=== PATIENT | female | born 1975 | race Caucasian/White ===

== ENCOUNTER 2017-03-22 08:32 | Emergency (ER) | payer SELFPAY ==
[~2017-03-22] VITALS: Ht 175.3 cm; Wt 74.0 kg
[~2017-03-22 08:32] MED LIST: ADDERALL20 MG PO; CIPROFLOXACN500 MG PO
[2017-03-22 09:17] LABS: HEMATOCRIT 42.7 % (37.0-47.0); HEMOGLOBIN 13.7 g/dl (12.0-16.0); IMMATURE GRANULOCYTES 0.2 % (0.0-1.0); MEAN CELL VOLUME 84.2 fL CALC (80.0-100.0); MEAN CORPUSCULAR HGB CONC 32.1 g/L CALC (32.0-36.0); NEUT# 7.55 thou/uL (2.00-7.15); RED BLOOD COUNT 5.07 mill/uL (4.20-5.60); RED CELL DISTRI WIDTH 14.6 % (11.5-15.5)
[2017-03-22 09:24] LABS: ALKALINE PHOSPHATASE 57 u/l (38-126); ANION GAP 15 (6-22 (CALC)); BILIRUBIN, TOTAL 0.5 mg/dL (0.0-1.4); BUN 12 mg/dL (7-17); BUN/CREATININE RATIO 18 (12-20 (CALC)); CALCIUM 9.3 mg/dL (8.4-10.2); CARBON DIOXIDE 20 mmol/l (22-30); CHLORIDE 110 mmol/l (95-108); CREATININE 0.7 mg/dL (0.5-1.0); GFR > 60 ML/MIN (>=60 (CALC)); GFR FOR AFR.AMER. > 60 ML/MIN (>=60 (CALC)); GLUCOSE 89 mg/dL (65-105); POTASSIUM 4.1 mmol/l (3.5-5.1); SGOT/AST 18 u/l (14-36); SGPT/ALT 34 u/l (9-52); SODIUM 141 mmol/l (137-146); TOTAL PROTEIN 6.7 g/dL (6.3-8.2)
[2017-03-22 09:41] LABS: URINE BILIRUBIN - DIPSTICK NEGATIVE (NEGATIVE); URINE BLOOD DIPSTICK SMALL (NEGATIVE); URINE COLOR YELLOW; URINE GLUCOSE - DIPSTICK NEGATIVE (NEGATIVE); URINE KETONE NEGATIVE (NEGATIVE); URINE LEUK ESTERASE TRACE (NEGATIVE); URINE NITRITE - DIPSTICK NEGATIVE (Negative); URINE PH 6.5 (4.5-8.0); URINE PROTEIN - DIPSTICK NEGATIVE (NEG-TRACE); URINE UROBILINOGEN - DIPSTICK 0.2 E.U./dL (0.2)
[2017-03-22 09:43] LABS: URINE CLARITY SLIGHT CLOUDY; URINE EPITHELIAL CELLS FEW EPI/hpf (0-FEW); URINE WBC 0-2 WBC/hpf (0-5)
[2017-03-22 09:44] LABS: BARBITURATES NEGATIVE (NEGATIVE); COCAINE NEGATIVE (NEGATIVE); METHADONE NEGATIVE (NEGATIVE); OXCYCODONE NEGATIVE (NEGATIVE); TETRAHYDROCANNABIONOL NEGATIVE (NEGATIVE); TRICYLIC ANTIDEPRESSANTS NEGATIVE (NEGATIVE)
[2017-03-22 09:49] VITALS: BP 125/67
== END 2017-03-22 09:57 | disposition home or self-care (01) | DRG 948 ==
LOC: ED 08:32
PROVIDERS: Family Medicine
DX: R53.83 Other fatigue (principal); F17.210 Nicotine dependence, cigarettes, uncomplicated; F90.0 Attention-deficit hyperactivity disorder, predominantly inattentive type; M54.16 Radiculopathy, lumbar region

== ENCOUNTER 2017-04-28 06:42 | Emergency (ER) | payer OTHER ==
[~2017-04-28] VITALS: Ht 172.7 cm; Wt 86.2 kg
[2017-04-28] MEDS ORDERED: PREDNISONE20 MG PO (07:30)
[2017-04-28] MEDS ORDERED: TIZANIDINE2 MG PO (07:31)
[2017-04-28 07:32] LABS: HEMATOCRIT 42.9 % (37.0-47.0); HEMOGLOBIN 13.6 g/dl (12.0-16.0); IMMATURE GRANULOCYTES 0.4 % (0.0-1.0); MEAN CELL VOLUME 85.1 fL CALC (80.0-100.0); MEAN CORPUSCULAR HGB CONC 31.7 g/L CALC (32.0-36.0); NEUT# 7.47 thou/uL (2.00-7.15); RED BLOOD COUNT 5.04 mill/uL (4.20-5.60); RED CELL DISTRI WIDTH 14.1 % (11.5-15.5)
[2017-04-28 07:33] LABS: URINE BILIRUBIN - DIPSTICK NEGATIVE (NEGATIVE); URINE BLOOD DIPSTICK NEGATIVE (NEGATIVE); URINE CLARITY CLEAR; URINE COLOR YELLOW; URINE GLUCOSE - DIPSTICK NEGATIVE (NEGATIVE); URINE KETONE NEGATIVE (NEGATIVE); URINE LEUK ESTERASE NEGATIVE (NEGATIVE); URINE NITRITE - DIPSTICK NEGATIVE (Negative); URINE PROTEIN - DIPSTICK NEGATIVE (NEG-TRACE); URINE SPECIFIC GRAVITY 1.025; URINE UROBILINOGEN - DIPSTICK 0.2 E.U./dL (0.2)
[2017-04-28 07:44] LABS: ALBUMIN 3.9 g/dL (3.2-5.0); ALKALINE PHOSPHATASE 58 u/l (38-126); BILIRUBIN, TOTAL 0.4 mg/dL (0.0-1.4); BUN 12 mg/dL (7-17); BUN/CREATININE RATIO 17 (12-20 (CALC)); CALCIUM 9.4 mg/dL (8.4-10.2); CARBON DIOXIDE 23 mmol/l (22-30); CHLORIDE 108 mmol/l (95-108); CREATININE 0.7 mg/dL (0.5-1.0); GFR > 60 ML/MIN (>=60 (CALC)); GFR FOR AFR.AMER. > 60 ML/MIN (>=60 (CALC)); GLUCOSE 84 mg/dL (65-105); SGOT/AST 15 u/l (14-36); SGPT/ALT 30 u/l (9-52); SODIUM 143 mmol/l (137-146); TOTAL PROTEIN 6.4 g/dL (6.3-8.2)
[2017-04-28 07:46] LABS: ANION GAP 16 (6-22 (CALC)); POTASSIUM 4.2 mmol/l (3.5-5.1)
[2017-04-28] MEDS ORDERED: MOTRIN800 MG PO (08:40)
[2017-04-28 08:45] VITALS: BP 131/74
== END 2017-04-28 08:49 | disposition home or self-care (01) | DRG 761 ==
LOC: ED 06:42
PROVIDERS: Emergency Medicine
DX: N83.201 Unspecified ovarian cyst, right side (principal); F17.210 Nicotine dependence, cigarettes, uncomplicated; M54.16 Radiculopathy, lumbar region; F90.0 Attention-deficit hyperactivity disorder, predominantly inattentive type

== ENCOUNTER 2017-08-18 06:11 | Day surgery (SDC) | payer OTHER ==
[~2017-08-18] VITALS: Ht 172.7 cm; Wt 81.6 kg
[~2017-08-18 06:11] MED LIST changes: +MOTRIN800 MG PO; +PREDNISONE20 MG PO; +TIZANIDINE2 MG PO
[2017-08-18] MEDS ORDERED: ASPIRIN81 MG PO (06:28)
[2017-08-18 07:53] VITALS: BP 113/60
== END 2017-08-18 08:22 | disposition home or self-care (01) | DRG 552 ==
LOC: ORM 06:11
PROVIDERS: ATTEND Anesthesiology Pain Medicine
PROC: 3E0T3BZ Introduction of Anesthetic Agent into Peripheral Nerves and Plexi, Percutaneous Approach (ICD-10-PCS; principal; 2017-08-18)
PROC: 3E0T33Z Introduction of Anti-inflammatory into Peripheral Nerves and Plexi, Percutaneous Approach (ICD-10-PCS; 2017-08-18)
PROC: BR16ZZZ Fluoroscopy of Lumbar Facet Joint(s) (ICD-10-PCS; 2017-08-18)
PROC: 3E0T3BZ Introduction of Anesthetic Agent into Peripheral Nerves and Plexi, Percutaneous Approach (ICD-10-PCS; 2017-08-18)
PROC: 3E0T33Z Introduction of Anti-inflammatory into Peripheral Nerves and Plexi, Percutaneous Approach (ICD-10-PCS; 2017-08-18)
DX: M54.5 Low back pain (principal); M12.9 Arthropathy, unspecified

== ENCOUNTER 2017-09-01 06:49 | Day surgery (SDC) | payer OTHER ==
[~2017-09-01] VITALS: Ht 172.7 cm; Wt 81.6 kg
[~2017-09-01 06:49] MED LIST changes: +ASPIRIN81 MG PO
[2017-09-01] MEDS ORDERED: TYLENOL 500MG TAB PO (07:14)
[2017-09-01] MEDS ORDERED: CEPHALEXIN500 MG PO (07:14)
[2017-09-01] MEDS ORDERED: BACLOFEN20 MG PO ×2 (09:05)
[2017-09-01 12:31] VITALS: BP 115/61
== END 2017-09-01 09:07 | disposition home or self-care (01) | DRG 552 ==
LOC: ORM 06:49
PROVIDERS: ATTEND Anesthesiology Pain Medicine
PROC: 3E0T3BZ Introduction of Anesthetic Agent into Peripheral Nerves and Plexi, Percutaneous Approach (ICD-10-PCS; principal; 2017-09-01)
PROC: 3E0T33Z Introduction of Anti-inflammatory into Peripheral Nerves and Plexi, Percutaneous Approach (ICD-10-PCS; 2017-09-01)
DX: M54.5 Low back pain (principal); M12.9 Arthropathy, unspecified

== ENCOUNTER 2021-10-01 12:22 | Emergency (ER) | payer BC ==
[~2021-10-01] VITALS: Ht 172.7 cm; Wt 88.1 kg
[~2021-10-01 12:22] MED LIST changes: +BACLOFEN20 MG PO; +CEPHALEXIN500 MG PO; +TYLENOL 500MG TAB PO
[2021-10-01 13:20] VITALS: BP 138/68
[2021-10-01] MEDS ORDERED: STRATTERA60 MG PO (13:36)
[2021-10-01 13:48] LABS: HEMATOCRIT 42.1 % (37.0-47.0); HEMOGLOBIN 13.1 g/dl (12.0-16.0); IMMATURE GRANULOCYTES 0.1 % (0.0-5.0); MEAN CELL VOLUME 85.4 fL CALC (80.0-100.0); MEAN CORPUSCULAR HGB 26.6 pG CALC (26.0-32.0); MEAN CORPUSCULAR HGB CONC 31.1 g/dL CAL (32.0-36.0); NEUT# 5.09 thou/uL (2.00-7.15); RED BLOOD COUNT 4.93 mill/uL (4.20-5.60); RED CELL DISTRI WIDTH 16.6 % (11.5-15.5)
[2021-10-01 14:05] LABS: ANION GAP 10 (6-22 (CALC)); BUN 8 mg/dL (7-17); BUN/CREATININE RATIO 10 (12-20 (CALC)); CARBON DIOXIDE 25 mmol/l (22-30); CHLORIDE 107 mmol/l (95-108); CREATININE 0.8 mg/dL (0.5-1.0); GFR > 60 ML/MIN (>=60 (CALC)); GFR FOR AFR.AMER. > 60 ML/MIN (>=60 (CALC)); POTASSIUM 3.7 mmol/l (3.5-5.1); SODIUM 138 mmol/l (137-146)
[2021-10-01 14:16] VITALS: BP 126/66
[2021-10-01 14:31] VITALS: BP 151/81
[2021-10-01 14:46] VITALS: BP 114/62
== END 2021-10-01 15:48 | disposition home or self-care (01) | DRG 556 ==
LOC: ED 12:22
PROVIDERS: Family Medicine
DX: M25.562 Pain in left knee (principal); M25.462 Effusion, left knee

== ENCOUNTER 2022-10-20 21:48 | Emergency (ER) | payer BC ==
[~2022-10-20] VITALS: Ht 172.7 cm; Wt 98.0 kg
[~2022-10-20 21:48] MED LIST changes: +STRATTERA60 MG PO
[2022-10-20 21:59] VITALS: BP 116/66
[2022-10-20] MEDS ORDERED: CEPHALEXIN500 MG PO (22:14)
[2022-10-20] MEDS ORDERED: TIZANIDINE4 MG PO (22:14)
[2022-10-20] MEDS ORDERED: FERROUS SULF325 M3 PO (22:15)
[2022-10-20] MEDS ORDERED: MEDDOSEPAK PO (22:15)
[2022-10-20] MEDS ORDERED: MELOXICAM7.5 MG PO (22:15)
[2022-10-20 22:16] VITALS: BP 109/59
[2022-10-20] MEDS ORDERED: ATIVAN0.5 MG PO (22:17)
[2022-10-20 22:31] VITALS: BP 114/52
[2022-10-20 22:42] VITALS: BP 114/52
== END 2022-10-20 22:35 | disposition left against medical advice (07) | DRG 951 ==
LOC: ED 21:48 → LWOBS 22:35
DX: Z53.21 Procedure and treatment not carried out due to patient leaving prior to being seen by health care provider (principal)

== ENCOUNTER 2022-10-22 07:20 | Emergency (ER) | payer OTHER ==
[~2022-10-22] VITALS: Ht 172.7 cm; Wt 90.0 kg
[~2022-10-22 07:20] MED LIST changes: +ATIVAN0.5 MG PO; +FERROUS SULF325 M3 PO; +MEDDOSEPAK PO; +MELOXICAM7.5 MG PO; +TIZANIDINE4 MG PO
[2022-10-22 07:30] VITALS: BP 149/77
[2022-10-22 07:46] VITALS: BP 125/82
[2022-10-22 08:01] VITALS: BP 133/67
[2022-10-22 08:51] VITALS: BP 133/67
== END 2022-10-22 08:45 | disposition home or self-care (01) | DRG 554 ==
LOC: ED 07:20
DX: M17.12 Unilateral primary osteoarthritis, left knee (principal)

== ENCOUNTER 2023-08-11 07:04 | Emergency (ER) | payer OTHER ==
[~2023-08-11] VITALS: Ht 172.7 cm; Wt 90.7 kg
[~2023-08-11 07:04] MED LIST changes: +AMOX/K CLAV875 M1 PO; +AMOXICILLIN500 M2 PO; +DOXY-CAPS100 MG PO; +FLONASE AL50 MCG/ACT; +IPRATROPIU0.5 MG/3 M IN; +LOPRESSOR25 M1 PO; +NAPROXEN500 MG PO; +NEBULIZER KIT/TUBING PO; +NEBULIZER PO; +PREDNISONE50 MG PO; +VENTOLIN HFA108 MCG PO
[2023-08-11 07:08] VITALS: BP 147/73
[2023-08-11 07:16] VITALS: BP 122/73
[2023-08-11] MEDS ORDERED: DICLOFENAC75 MG PO (07:58)
[2023-08-11 08:16] VITALS: BP 122/73
== END 2023-08-11 08:19 | disposition home or self-care (01) | DRG 554 ==
LOC: ED 07:04
DX: M17.12 Unilateral primary osteoarthritis, left knee (principal); I10 Essential (primary) hypertension; F41.9 Anxiety disorder, unspecified

== ENCOUNTER 2023-08-25 06:56 | Emergency (ER) | payer OTHER ==
[2023-08-25] VITALS (16 sets, daily range): BP systolic 109–170; BP diastolic 44–129
[~2023-08-25] VITALS: Ht 172.7 cm; Wt 91.0 kg
[~2023-08-25 06:56] MED LIST changes: +DICLOFENAC75 MG PO
[2023-08-25 07:30] LABS: BASO% 0.3 % (0-3); EOS% 1.7 % (0-8); HEMATOCRIT 44.1 % (37.0-47.0); HEMOGLOBIN 13.6 g/dl (12.0-16.0); IMMATURE GRANULOCYTES 0.2 % (0.0-5.0); LYMPH% 18.8 % (15-41); MEAN CELL VOLUME 86.6 fL CALC (80.0-100.0); MEAN CORPUSCULAR HGB 26.7 pG CALC (26.0-32.0); MEAN CORPUSCULAR HGB CONC 30.8 g/dL CAL (32.0-36.0); MONO% 6.7 % (2-13); NEUT# 7.48 thou/uL (2.00-7.15); NEUT% 72.3 % (42-76); RED BLOOD COUNT 5.09 mill/uL (4.20-5.60)
[2023-08-25 07:46] LABS: ALKALINE PHOSPHATASE 86 u/l (38-126); ANION GAP 11 (6-22 (CALC)); BILIRUBIN, TOTAL 0.2 mg/dL (0.02-1.3); BUN 12 mg/dL (7-17); BUN/CREATININE RATIO 17 (12-20 (CALC)); CARBON DIOXIDE 21 mmol/l (22-30); CHLORIDE 107 mmol/l (95-108); CREATININE 0.7 mg/dL (0.5-1.0); GFR FOR AFR.AMER. > 60 ML/MIN (>=60 (CALC)); GFR OTHER RACES > 60 ML/MIN (>=60 (CALC)); POTASSIUM 3.7 mmol/l (3.5-5.1); SGOT/AST 32 u/l (14-36); SODIUM 136 mmol/l (137-146); TOTAL PROTEIN 6.8 g/dL (6.3-8.2)
[2023-08-25 08:27] LABS: URINE BILIRUBIN - DIPSTICK Negative (NEGATIVE); URINE BLOOD DIPSTICK Negative (NEGATIVE); URINE COLOR Yellow; URINE GLUCOSE - DIPSTICK Negative (NEGATIVE); URINE KETONE Negative (NEGATIVE); URINE LEUK ESTERASE Negative (NEGATIVE); URINE NITRITE - DIPSTICK Negative (Negative); URINE PROTEIN - DIPSTICK Negative (NEG-TRACE); URINE UROBILINOGEN - DIPSTICK 0.2 E.U./dL (0.2)
== END 2023-08-25 11:10 | disposition home or self-care (01) | DRG 313 ==
LOC: ED 06:56
PROVIDERS: Family Medicine
DX: R07.9 Chest pain, unspecified (principal); I10 Essential (primary) hypertension; F41.9 Anxiety disorder, unspecified; K21.9 Gastro-esophageal reflux disease without esophagitis; F17.200 Nicotine dependence, unspecified, uncomplicated

== ENCOUNTER 2024-01-31 14:34 | Emergency (ER) | payer OTHER ==
[~2024-01-31] VITALS: Ht 172.7 cm; Wt 88.4 kg
[~2024-01-31 14:34] MED LIST changes: +CARAFATE1 GM PO; +GABAPENTIN300 M2; +LOREEV XR2 MG PO
[2024-01-31 14:45] VITALS: BP 157/72
[2024-01-31 15:01] VITALS: BP 144/75
[2024-01-31 15:16] VITALS: BP 125/74
[2024-01-31 15:30] VITALS: BP 129/86
[2024-01-31 15:46] VITALS: BP 129/86
== END 2024-01-31 15:50 | disposition home or self-care (01) | DRG 153 ==
LOC: ED 14:34
DX: J06.9 Acute upper respiratory infection, unspecified (principal); I10 Essential (primary) hypertension; F41.9 Anxiety disorder, unspecified; K21.9 Gastro-esophageal reflux disease without esophagitis; F17.200 Nicotine dependence, unspecified, uncomplicated; Z20.822 Contact with and (suspected) exposure to COVID-19

== ENCOUNTER → 2024-02-05 | Emergency (ER) | payer OTHER ==
[~2024-02-05] VITALS: Ht 172.7 cm; Wt 75.9 kg
[~2024-02-05] MED LIST changes: +ANUCORT-HC25 MG RE
[2024-02-05 17:37] VITALS: BP 151/76
[2024-02-05 17:46] VITALS: BP 127/71
[2024-02-05 18:01] VITALS: BP 119/80
== END | disposition home or self-care (01) | DRG 379 ==
LOC: ED 17:29
DX: K62.5 Hemorrhage of anus and rectum (principal); I10 Essential (primary) hypertension; F41.9 Anxiety disorder, unspecified; K21.9 Gastro-esophageal reflux disease without esophagitis; F17.200 Nicotine dependence, unspecified, uncomplicated; Z53.29 Procedure and treatment not carried out because of patient's decision for other reasons

== ENCOUNTER 2024-02-16 08:50 | Emergency (ER) | payer OTHER ==
[~2024-02-16] VITALS: Ht 172.7 cm; Wt 86.3 kg
[2024-02-16 09:10] VITALS: BP 150/90
[2024-02-16 09:29] LABS: BASO% 0.5 % (0-3); EOS% 3.5 % (0-8); HEMATOCRIT 40.7 % (37.0-47.0); HEMOGLOBIN 12.6 g/dl (12.0-16.0); IMMATURE GRANULOCYTES 0.4 % (0.0-5.0); LYMPH% 19.8 % (15-41); MEAN CELL VOLUME 80.9 fL CALC (80.0-100.0); MONO% 8.2 % (2-13); NEUT# 7.5 thou/uL (2.00-7.15); NEUT% 67.6 % (42-76); RED BLOOD COUNT 5.03 mill/uL (4.20-5.60); RED CELL DISTRI WIDTH 15.3 % (11.5-15.5)
[2024-02-16 09:31] VITALS: BP 116/66
[2024-02-16 09:38] LABS: ALBUMIN 4.3 g/dL (3.2-5.0); ALKALINE PHOSPHATASE 101 u/l (38-126); ANION GAP 10 (6-22 (CALC)); BILIRUBIN, TOTAL 0.3 mg/dL (0.02-1.3); BUN 13 mg/dL (7-17); BUN/CREATININE RATIO 18 (12-20 (CALC)); CARBON DIOXIDE 21 mmol/l (22-30); CHLORIDE 109 mmol/l (95-108); CREATININE 0.7 mg/dL (0.5-1.0); ESTIMATED GFR 106 ML/MIN (>=90 (CALC)); LIPASE 113 u/l (23-300); POTASSIUM 3.9 mmol/l (3.5-5.1); SGOT/AST 32 u/l (14-36); SODIUM 136 mmol/l (137-146); TOTAL PROTEIN 7.3 g/dL (6.3-8.2)
[2024-02-16 10:00] VITALS: BP 139/73
[2024-02-16 10:47] VITALS: BP 115/54
[2024-02-16] MEDS ORDERED: ZOFRAN4 MG/TAB PO (10:59)
[2024-02-16 11:00] VITALS: BP 131/62
[2024-02-16 11:11] VITALS: BP 131/62
[2024-02-16] MEDS ORDERED: PREDNISONE20 MG PO (21:06)
== END 2024-02-16 11:13 | disposition home or self-care (01) | DRG 392 ==
LOC: ED 08:50
PROVIDERS: Family Medicine
DX: R10.84 Generalized abdominal pain (principal); I10 Essential (primary) hypertension; F41.9 Anxiety disorder, unspecified; K21.9 Gastro-esophageal reflux disease without esophagitis; F17.210 Nicotine dependence, cigarettes, uncomplicated

== ENCOUNTER 2024-02-16 20:08 | Emergency (ER) | payer OTHER ==
[~2024-02-16] VITALS: Ht 172.7 cm; Wt 86.0 kg
[~2024-02-16 20:08] MED LIST changes: +ZOFRAN4 MG/TAB PO
[2024-02-16] MEDS ORDERED: predniSONE 20 MG/TAB PO ONE (20:45)
[2024-02-16] MEDS ORDERED: DiphenhydrAMINE HCL 25 MG CPLT PO ONE (20:45)
[2024-02-16] MEDS ORDERED: PREDNISONE20 MG PO (21:06)
[2024-02-16 21:20] VITALS: BP 122/78
== END 2024-02-16 21:20 | disposition home or self-care (01) | DRG 880 ==
LOC: ED 20:08
DX: F41.0 Panic disorder [episodic paroxysmal anxiety] (principal); I10 Essential (primary) hypertension; J45.909 Unspecified asthma, uncomplicated; K21.9 Gastro-esophageal reflux disease without esophagitis; F17.210 Nicotine dependence, cigarettes, uncomplicated; Z88.8 Allergy status to other drugs, medicaments and biological substances

== ENCOUNTER 2024-03-19 11:05 | Emergency (ER) | payer OTHER ==
[~2024-03-19] VITALS: Ht 172.7 cm; Wt 90.7 kg
[2024-03-19 11:11] VITALS: BP 149/68
[2024-03-19 11:16] VITALS: BP 139/76
[2024-03-19] MEDS ORDERED: DiphenhydrAMINE HCL 50 MG/ML SDV IV ONE (11:25)
[2024-03-19] MEDS ORDERED: methylPREDNISolone SODIUM SUCC 125 MG/2 ML SDV IV ONE (11:25)
[2024-03-19] MEDS ORDERED: FAMOTIDINE 10MG/ML 2ML SDV IV ONE (11:25)
[2024-03-19] MEDS ORDERED: IPRATROPIUM-Albuterol 0.5MG-2.5MG/3 ML NEB ONE ×2 (11:30)
[2024-03-19] MEDS ORDERED: ASPIRIN 81 MG/TAB PO ONE (11:30)
[2024-03-19 12:04] LABS: BASO% 0.2 % (0-3); EOS% 2.8 % (0-8); HEMATOCRIT 39.5 % (37.0-47.0); HEMOGLOBIN 12.1 g/dl (12.0-16.0); IMMATURE GRANULOCYTES 0.4 % (0.0-5.0); LYMPH% 20.7 % (15-41); MEAN CELL VOLUME 77.6 fL CALC (80.0-100.0); MEAN CORPUSCULAR HGB 23.8 pG CALC (26.0-32.0); MEAN CORPUSCULAR HGB CONC 30.6 g/dL CAL (32.0-36.0); MONO% 6.3 % (2-13); NEUT# 8.55 thou/uL (2.00-7.15); NEUT% 69.6 % (42-76); RED BLOOD COUNT 5.09 mill/uL (4.20-5.60); RED CELL DISTRI WIDTH 15.9 % (11.5-15.5)
[2024-03-19 12:19] LABS: ALBUMIN 4.2 g/dL (3.2-5.0); BILIRUBIN, TOTAL 0.3 mg/dL (0.02-1.3); CREATININE 0.7 mg/dL (0.5-1.0); POTASSIUM 4.1 mmol/l (3.5-5.1); TOTAL PROTEIN 7.1 g/dL (6.3-8.2)
[2024-03-19] MEDS ORDERED: EPINEPHrine HCL 1 MG/ML AMP IM ONE (12:50)
[2024-03-19] MEDS ORDERED: ALL DAY10 MG PO (13:32)
[2024-03-19 13:40] VITALS: BP 139/76
== END 2024-03-19 13:49 | disposition home or self-care (01) | DRG 916 ==
LOC: ED 11:05
PROVIDERS: Family Medicine
DX: T78.40XA Allergy, unspecified, initial encounter (principal); I10 Essential (primary) hypertension; E66.9 Obesity, unspecified; F41.9 Anxiety disorder, unspecified; K21.9 Gastro-esophageal reflux disease without esophagitis; F17.200 Nicotine dependence, unspecified, uncomplicated; X58.XXXA Exposure to other specified factors, initial encounter

== ENCOUNTER 2024-03-28 12:09 | Emergency (ER) | payer OTHER ==
[~2024-03-28] VITALS: Ht 172.7 cm; Wt 86.0 kg
[2024-03-28] VITALS (9 sets, daily range): BP systolic 84–209; BP diastolic 57–113
[~2024-03-28 12:09] MED LIST changes: +ALL DAY10 MG PO
[2024-03-28] MEDS ORDERED: MEDDOSEPAK PO (13:31)
[2024-03-28] MEDS ORDERED: LEVOCETIRIZINE D5 MG PO (13:31)
[2024-03-28] MEDS ORDERED: ALLERGY RE50 MCG/ACT (13:31)
[2024-03-28] MEDS ORDERED: BENZONATATE200 MG PO (13:31)
== END 2024-03-28 14:11 | disposition home or self-care (01) | DRG 153 ==
LOC: ED 12:09
DX: J06.9 Acute upper respiratory infection, unspecified (principal); I10 Essential (primary) hypertension; F41.9 Anxiety disorder, unspecified; K21.9 Gastro-esophageal reflux disease without esophagitis; F17.200 Nicotine dependence, unspecified, uncomplicated; Z20.822 Contact with and (suspected) exposure to COVID-19

== ENCOUNTER 2024-04-09 12:54 | Emergency (ER) | payer OTHER ==
[~2024-04-09] VITALS: Ht 172.7 cm; Wt 86.2 kg
[~2024-04-09 12:54] MED LIST changes: +ALLERGY RE50 MCG/ACT; +BENZONATATE200 MG PO; +LEVOCETIRIZINE D5 MG PO
[2024-04-09 13:15] VITALS: BP 132/56
[2024-04-09 13:31] VITALS: BP 136/62
[2024-04-09 13:57] VITALS: BP 132/56
== END 2024-04-09 14:05 | disposition home or self-care (01) | DRG 204 ==
LOC: ED 12:54
DX: R05.9 Cough, unspecified (principal); I10 Essential (primary) hypertension; F41.9 Anxiety disorder, unspecified; K21.9 Gastro-esophageal reflux disease without esophagitis; F17.200 Nicotine dependence, unspecified, uncomplicated

== ENCOUNTER 2024-04-16 15:12 | Emergency (ER) | payer OTHER ==
[~2024-04-16] VITALS: Ht 172.7 cm; Wt 89.8 kg
[2024-04-16 15:23] VITALS: BP 128/73
[2024-04-16 15:30] VITALS: BP 151/79
[2024-04-16] MEDS ORDERED: DiphenhydrAMINE HCL 25 MG CPLT PO ONE (15:35)
[2024-04-16] MEDS ORDERED: predniSONE 20 MG/TAB PO ONE (15:35)
[2024-04-16] MEDS ORDERED: PREDNISONE50 MG PO (15:36)
[2024-04-16] MEDS ORDERED: PAXIL30 MG PO (15:36)
[2024-04-16] MEDS ORDERED: BENADRYL25 M1 PO (15:36)
[2024-04-16] MEDS ORDERED: predniSONE 20 MG/TAB PO SCH (16:08)
[2024-04-16 16:17] VITALS: BP 151/79
== END 2024-04-16 16:17 | disposition home or self-care (01) | DRG 880 ==
LOC: ED 15:12
DX: F41.9 Anxiety disorder, unspecified (principal); I10 Essential (primary) hypertension; K21.9 Gastro-esophageal reflux disease without esophagitis; F17.200 Nicotine dependence, unspecified, uncomplicated

== ENCOUNTER 2024-06-08 20:30 | Emergency (ER) | payer OTHER ==
[~2024-06-08] VITALS: Ht 172.7 cm; Wt 86.0 kg
[~2024-06-08 20:30] MED LIST changes: +BENADRYL25 M1 PO; +IBUPROFEN600 MG PO; +PAXIL30 MG PO; +VISTARIL 50MG C50 M1 PO
[2024-06-08] MEDS ORDERED: ASPIRIN 81 MG/TAB PO ONE (20:50)
[2024-06-08] MEDS ORDERED: KETOROLAC TROMETHAMINE 30 MG/ML SDV IV ONE (20:50)
[2024-06-08] MEDS ORDERED: DiphenhydrAMINE HCL 50 MG/ML SDV IV ONE (20:50)
[2024-06-08 21:19] VITALS: BP 110/56
[2024-06-08 21:38] LABS: ALBUMIN 4.2 g/dL (3.2-5.0); ALKALINE PHOSPHATASE 94 u/l (38-126); ANION GAP 14 (6-22 (CALC)); BUN 15 mg/dL (7-17); BUN/CREATININE RATIO 19 (12-20 (CALC)); CARBON DIOXIDE 23 mmol/l (22-30); CHLORIDE 105 mmol/l (95-108); CREATININE 0.8 mg/dL (0.5-1.0); ESTIMATED GFR 90 ML/MIN (>=90 (CALC)); POTASSIUM 4.3 mmol/l (3.5-5.1); SGOT/AST 32 u/l (14-36); SODIUM 138 mmol/l (137-146)
[2024-06-08 21:43] LABS: BASO% 0.4 % (0-3); EOS% 3.3 % (0-8); HEMATOCRIT 36.3 % (37.0-47.0); HEMOGLOBIN 10.6 g/dl (12.0-16.0); IMMATURE GRANULOCYTES 0.6 % (0.0-5.0); LYMPH% 19.2 % (15-41); MEAN CORPUSCULAR HGB CONC 29.2 g/dL CAL (32.0-36.0); MONO% 6.1 % (2-13); NEUT# 7.92 thou/uL (2.00-7.15); NEUT% 70.4 % (42-76); RED BLOOD COUNT 5.04 mill/uL (4.20-5.60); RED CELL DISTRI WIDTH 18.9 % (11.5-15.5)
[2024-06-08 21:45] LABS: INTERNATIONAL NORMALIZED RATIO 0.9 RATIO (0.7-1.3)
[2024-06-08 21:51] LABS: BILIRUBIN, TOTAL 0.3 mg/dL (0.02-1.3)
[2024-06-08 21:54] LABS: PROTHROMBIN TIME 9.3 SECONDS (9.0-12.5)
[2024-06-08] MEDS ORDERED: TORADOL PO (22:09)
[2024-06-08] MEDS ORDERED: LEXAPRO10 MG PO (22:09)
[2024-06-08 22:24] VITALS: BP 110/56
== END 2024-06-08 22:24 | disposition home or self-care (01) | DRG 313 ==
LOC: ED 20:30
PROVIDERS: Family Medicine
DX: R07.89 Other chest pain (principal); F41.9 Anxiety disorder, unspecified; I10 Essential (primary) hypertension; K21.9 Gastro-esophageal reflux disease without esophagitis; R73.03 Prediabetes; F17.200 Nicotine dependence, unspecified, uncomplicated

== ENCOUNTER 2024-06-14 20:41 | Emergency (ER) | payer OTHER ==
[~2024-06-14] VITALS: Ht 172.7 cm; Wt 86.0 kg
[~2024-06-14 20:41] MED LIST changes: +LEXAPRO10 MG PO; +TORADOL PO
[2024-06-14 22:27] VITALS: BP 150/73
[2024-06-15] MEDS ORDERED: ATIVAN1 MG PO (08:25)
[2024-06-15] MEDS ORDERED: TOPROL XL25 M1 PO (08:25)
[2024-06-15] MEDS ORDERED: LIPITOR40 M1 PO (09:15)
== END 2024-06-14 22:25 | disposition left against medical advice (07) | DRG 951 ==
LOC: ED 20:41 → LWOBS 22:25
DX: Z53.21 Procedure and treatment not carried out due to patient leaving prior to being seen by health care provider (principal)

== ENCOUNTER 2024-06-15 07:54 | Emergency (ER) | payer OTHER ==
[~2024-06-15] VITALS: Ht 172.7 cm; Wt 95.2 kg
[2024-06-15] MEDS ORDERED: Iopamidol 370 (Isovue) 76% 100 ML SDV IV ONE ×2 (08:00)
[2024-06-15] MEDS ORDERED: ATIVAN1 MG PO (08:25)
[2024-06-15] MEDS ORDERED: TOPROL XL25 M1 PO (08:25)
[2024-06-15 08:27] LABS: BASO% 0.4 % (0-3); EOS% 3.4 % (0-8); HEMATOCRIT 36.9 % (37.0-47.0); HEMOGLOBIN 10.6 g/dl (12.0-16.0); IMMATURE GRANULOCYTES 0.2 % (0.0-5.0); LYMPH% 21.8 % (15-41); MEAN CORPUSCULAR HGB 20.4 pG CALC (26.0-32.0); MEAN CORPUSCULAR HGB CONC 28.7 g/dL CAL (32.0-36.0); MONO% 8.3 % (2-13); NEUT# 6.66 thou/uL (2.00-7.15); NEUT% 65.9 % (42-76); RED BLOOD COUNT 5.2 mill/uL (4.20-5.60); RED CELL DISTRI WIDTH 18.8 % (11.5-15.5)
[2024-06-15 08:31] VITALS: BP 128/56
[2024-06-15] MEDS ORDERED: CLOPIDOGREL BISULFATE 75 MG/TAB TAB PO ONE (08:35)
[2024-06-15] MEDS ORDERED: ASPIRIN 81 MG/TAB PO ONE (08:35)
[2024-06-15 08:38] LABS: INTERNATIONAL NORMALIZED RATIO 0.9 RATIO (0.7-1.3)
[2024-06-15 08:39] VITALS: BP 126/59
[2024-06-15 08:40] LABS: ALBUMIN 4.1 g/dL (3.2-5.0); ALKALINE PHOSPHATASE 95 u/l (38-126); ANION GAP 14 (6-22 (CALC)); BILIRUBIN, TOTAL 0.4 mg/dL (0.02-1.3); BUN 12 mg/dL (7-17); BUN/CREATININE RATIO 17 (12-20 (CALC)); CALCULATED LDLCHOLESTEROL 92 mg/dL (62-129 (CALC)); CARBON DIOXIDE 22 mmol/l (22-30); CHLORIDE 105 mmol/l (95-108); CREATININE 0.7 mg/dL (0.5-1.0); ESTIMATED GFR 105 ML/MIN (>=90 (CALC)); HDL CHOLESTEROL 59 mg/dL (39.0-59.0); POTASSIUM 4.1 mmol/l (3.5-5.1); SGOT/AST 27 u/l (14-36); SODIUM 137 mmol/l (137-146); TOTAL CHOLESTEROL 174 mg/dl (0-199); TOTAL PROTEIN 6.9 g/dL (6.3-8.2); TOTAL TRIGLYCERIDES 117 mg/dl (0-149); VLDL CHOLESTROL 23 mg/dl (2-49 (CALC))
[2024-06-15 08:41] LABS: PROTHROMBIN TIME 9.8 SECONDS (9.0-12.5)
[2024-06-15 08:52] VITALS: BP 148/71
[2024-06-15] MEDS ORDERED: LIPITOR40 M1 PO (09:15)
[2024-06-15 09:27] LABS: URINE BILIRUBIN - DIPSTICK Negative (NEGATIVE); URINE BLOOD DIPSTICK Small (NEGATIVE); URINE GLUCOSE - DIPSTICK Negative (NEGATIVE); URINE KETONE Negative (NEGATIVE); URINE LEUK ESTERASE Negative (NEGATIVE); URINE NITRITE - DIPSTICK Negative (Negative); URINE PH 5.5 (4.5-8.0); URINE PROTEIN - DIPSTICK Negative (NEG-TRACE); URINE SPECIFIC GRAVITY 1.025; URINE UROBILINOGEN - DIPSTICK 0.2 E.U./dL (0.2)
[2024-06-15 09:31] LABS: URINE COLOR Yellow; URINE EPITHELIAL CELLS FEW EPI/hpf (0-FEW)
[2024-06-15 09:34] VITALS: BP 148/71
[2024-06-16] MEDS ORDERED: LASIX20 MG PO (13:06)
[2024-06-16] MEDS ORDERED: PLAVIX75 MG PO (13:07)
[2024-06-16] MEDS ORDERED: ATORVASTATIN CA40 MG PO (13:08)
== END 2024-06-15 09:37 | disposition left against medical advice (07) | DRG 93 ==
LOC: ED 07:54
PROVIDERS: Family Medicine
DX: R47.81 Slurred speech (principal); R20.2 Paresthesia of skin; R42 Dizziness and giddiness; J02.9 Acute pharyngitis, unspecified; I10 Essential (primary) hypertension; E11.9 Type 2 diabetes mellitus without complications; F41.9 Anxiety disorder, unspecified; K21.9 Gastro-esophageal reflux disease without esophagitis; R73.03 Prediabetes; F17.200 Nicotine dependence, unspecified, uncomplicated; Z53.21 Procedure and treatment not carried out due to patient leaving prior to being seen by health care provider

== ENCOUNTER 2024-06-15 11:21 | Observation (INO) | payer OTHER ==
[2024-06-15] VITALS (9 sets, daily range): BP systolic 116–147; BP diastolic 57–76
[~2024-06-15] VITALS: Ht 172.7 cm; Wt 107.2 kg
[~2024-06-15 11:21] MED LIST changes: +ATIVAN1 MG PO; +LIPITOR40 M1 PO; +TOPROL XL25 M1 PO
[2024-06-15] MEDS ORDERED: MAGNESIUM HYDROXIDE 30 ML UDC PO PRN (12:20)
[2024-06-15] MEDS ORDERED: ACETAMINOPHEN 325 MG/TAB PO PRN (12:20)
[2024-06-15] MEDS ORDERED: SODIUM CHLORIDE 0.9% 1,000 ML IV PRN (12:20)
[2024-06-15] MEDS ORDERED: DEXTROSE 250 ML IV PRN ×2 (12:30→14:20)
[2024-06-15] MEDS ORDERED: hydrALAZINE HCL 20 MG/ML VIAL(1 ML) IV PRN (12:50)
[2024-06-15] MEDS ORDERED: LORazepam 1 MG/TAB PO PRN (14:20)
[2024-06-15] MEDS ORDERED: INSULIN LISPRO 100 UNITS/ML ML SC SCH (17:00)
[2024-06-15] MEDS ORDERED: ENOXAPARIN SODIUM 40 MG/0.4 ML SYR SC SCH (21:00)
[2024-06-15] MEDS ORDERED: ATORVASTATIN CALCIUM 40 MG/TAB PO SCH (21:00)
[2024-06-16 04:10] VITALS: BP 121/69
[2024-06-16 05:15] LABS: BASO% 0.6 % (0-3); EOS% 2.2 % (0-8); HEMATOCRIT 33.8 % (37.0-47.0); HEMOGLOBIN 9.7 g/dl (12.0-16.0); IMMATURE GRANULOCYTES 0.4 % (0.0-5.0); LYMPH% 25.2 % (15-41); MEAN CELL VOLUME 72.1 fL CALC (80.0-100.0); MEAN CORPUSCULAR HGB 20.7 pG CALC (26.0-32.0); MEAN CORPUSCULAR HGB CONC 28.7 g/dL CAL (32.0-36.0); MONO% 8.5 % (2-13); NEUT# 5.62 thou/uL (2.00-7.15); NEUT% 63.1 % (42-76); RED BLOOD COUNT 4.69 mill/uL (4.20-5.60); RED CELL DISTRI WIDTH 18.9 % (11.5-15.5)
[2024-06-16 05:25] LABS: ALBUMIN 3.3 g/dL (3.2-5.0); BILIRUBIN, TOTAL 0.3 mg/dL (0.02-1.3); CHOLESTEROL HDL RATIO 3.1 (<4.4 (CALC)); CREATININE 0.7 mg/dL (0.5-1.0); MAGNESIUM 2.1 mg/dL (1.6-2.3); POTASSIUM 3.8 mmol/l (3.5-5.1); TOTAL PROTEIN 5.7 g/dL (6.3-8.2)
[2024-06-16 07:05] VITALS: BP 128/70
[2024-06-16] MEDS ORDERED: ASPIRIN 81 MG/TAB PO SCH (09:00)
[2024-06-16] MEDS ORDERED: CLOPIDOGREL BISULFATE 75 MG/TAB TAB PO SCH (09:00)
[2024-06-16] MEDS ORDERED: IRON SUCROSE COMPLEX 200 MG in SODIUM CHLORIDE 0.9% 100 ML IV SCH (09:00)
[2024-06-16 10:29] VITALS: BP 144/77
[2024-06-16 10:58] VITALS: BP 144/77
[2024-06-16] MEDS ORDERED: DiphenhydrAMINE HCL 50 MG/ML SDV IV SCH (11:00)
[2024-06-16] MEDS ORDERED: methylPREDNISolone SODIUM SUCC 125 MG/2 ML SDV IV SCH (11:00)
[2024-06-16] MEDS ORDERED: FAMOTIDINE 10MG/ML 2ML SDV IV SCH (11:00)
[2024-06-16] MEDS ORDERED: LASIX20 MG PO (13:06)
[2024-06-16] MEDS ORDERED: PLAVIX75 MG PO (13:07)
[2024-06-16] MEDS ORDERED: ATORVASTATIN CA40 MG PO (13:08)
== END 2024-06-16 14:40 | disposition home or self-care (01) | DRG 93 ==
LOC: ED 11:21 → ED-I 11:32 → ED 11:39 → MS2 11:40
PROVIDERS: ADMIT Student in an Organized Health Care Education/Training Program; ATTEND Student in an Organized Health Care Education/Training Program
DX: R20.0 Anesthesia of skin (principal); R53.1 Weakness; R47.81 Slurred speech; I10 Essential (primary) hypertension; E11.65 Type 2 diabetes mellitus with hyperglycemia; D50.0 Iron deficiency anemia secondary to blood loss (chronic); N92.0 Excessive and frequent menstruation with regular cycle; F41.9 Anxiety disorder, unspecified; K21.9 Gastro-esophageal reflux disease without esophagitis; F40.240 Claustrophobia; E66.9 Obesity, unspecified; R06.02 Shortness of breath; T45.4X5A Adverse effect of iron and its compounds, initial encounter; F17.290 Nicotine dependence, other tobacco product, uncomplicated
CPT/HCPCS: G0378; J1650; J1756; J1815

== ENCOUNTER 2024-06-20 16:21 | Observation (INO) | payer OTHER ==
[2024-06-20] VITALS (14 sets, daily range): BP systolic 109–132; BP diastolic 37–68
[~2024-06-20] VITALS: Ht 172.7 cm; Wt 105.8 kg
[~2024-06-20 16:21] MED LIST changes: +ATORVASTATIN CA40 MG PO; +LASIX20 MG PO; +PLAVIX75 MG PO
[2024-06-20] MEDS ORDERED: NITROGLYCERIN 0.4 MG/TAB SL ONE (16:40)
[2024-06-20] MEDS ORDERED: ASPIRIN 81 MG/TAB PO ONE (16:40)
[2024-06-20 17:04] LABS: BASO% 0.4 % (0-3); EOS% 3.4 % (0-8); HEMATOCRIT 37.4 % (37.0-47.0); HEMOGLOBIN 10.8 g/dl (12.0-16.0); IMMATURE GRANULOCYTES 0.5 % (0.0-5.0); LYMPH% 18.6 % (15-41); MEAN CELL VOLUME 72.3 fL CALC (80.0-100.0); MEAN CORPUSCULAR HGB 20.9 pG CALC (26.0-32.0); MEAN CORPUSCULAR HGB CONC 28.9 g/dL CAL (32.0-36.0); MONO% 8.9 % (2-13); NEUT# 7.39 thou/uL (2.00-7.15); NEUT% 68.2 % (42-76); RED BLOOD COUNT 5.17 mill/uL (4.20-5.60); RED CELL DISTRI WIDTH 20.7 % (11.5-15.5)
[2024-06-20 17:14] LABS: ALBUMIN 4.4 g/dL (3.2-5.0); BILIRUBIN, TOTAL 0.3 mg/dL (0.02-1.3); CREATININE 0.9 mg/dL (0.5-1.0); POTASSIUM 4.1 mmol/l (3.5-5.1)
[2024-06-20] MEDS ORDERED: NITROGLYCERIN 0.4 MG/TAB SL PRN (20:30)
[2024-06-20] MEDS ORDERED: ACETAMINOPHEN 325 MG/TAB PO PRN (20:35)
[2024-06-20] MEDS ORDERED: MAGNESIUM HYDROXIDE 30 ML UDC PO PRN (20:35)
[2024-06-20] MEDS ORDERED: LORazepam 0.5 MG/TAB PO PRN (22:25)
[2024-06-21 03:13] VITALS: BP 112/45
[2024-06-21 05:20] LABS: BILIRUBIN, TOTAL 0.2 mg/dL (0.02-1.3); CREATININE 0.6 mg/dL (0.5-1.0); POTASSIUM 4.5 mmol/l (3.5-5.1)
[2024-06-21 05:22] LABS: BASO% 0.5 % (0-3); EOS% 4.6 % (0-8); HEMATOCRIT 36.2 % (37.0-47.0); HEMOGLOBIN 10.9 g/dl (12.0-16.0); IMMATURE GRANULOCYTES 0.4 % (0.0-5.0); LYMPH% 20.8 % (15-41); MEAN CELL VOLUME 72.5 fL CALC (80.0-100.0); MEAN CORPUSCULAR HGB 21.8 pG CALC (26.0-32.0); MEAN CORPUSCULAR HGB CONC 30.1 g/dL CAL (32.0-36.0); NEUT# 4.94 thou/uL (2.00-7.15); NEUT% 63.7 % (42-76); RED BLOOD COUNT 4.99 mill/uL (4.20-5.60); RED CELL DISTRI WIDTH 20.4 % (11.5-15.5)
[2024-06-21 05:42] LABS: ALBUMIN 3.5 g/dL (3.2-5.0)
[2024-06-21 07:18] VITALS: BP 113/47
[2024-06-21] MEDS ORDERED: ASPIRIN 81 MG/TAB PO SCH (09:00)
[2024-06-21 09:20] VITALS: BP 122/65
[2024-06-21 11:02] VITALS: BP 124/63
[2024-06-21] MEDS ORDERED: CORLANOR5 MG PO (14:24)
[2024-06-21] MEDS ORDERED: VAZALORE81 MG PO (14:25)
[2024-06-21] MEDS ORDERED: ATORVASTATIN CA40 MG PO (14:26)
[2024-06-21] MEDS ORDERED: NITROSTAT0.4 MG SL (14:28)
[2024-06-21] MEDS ORDERED: ATORVASTATIN CALCIUM 40 MG/TAB PO SCH (21:00)
== END 2024-06-21 15:40 | disposition home or self-care (01) | DRG 313 ==
LOC: ED 16:21 → ED-I 20:00 → ED 21:02 → MS2 21:03
PROVIDERS: Family Medicine; ADMIT Internal Medicine; ATTEND Internal Medicine
DX: R07.9 Chest pain, unspecified (principal); I47.11 Inappropriate sinus tachycardia, so stated; I10 Essential (primary) hypertension; J44.9 Chronic obstructive pulmonary disease, unspecified; E11.9 Type 2 diabetes mellitus without complications; D50.9 Iron deficiency anemia, unspecified; N92.0 Excessive and frequent menstruation with regular cycle; F41.9 Anxiety disorder, unspecified; K21.9 Gastro-esophageal reflux disease without esophagitis; F32.A Depression, unspecified; F40.240 Claustrophobia; Z86.73 Personal history of transient ischemic attack (TIA), and cerebral infarction without residual deficits; Z87.891 Personal history of nicotine dependence; R06.02 Shortness of breath
CPT/HCPCS: G0378

== ENCOUNTER 2024-06-23 13:13 | Emergency (ER) | payer OTHER ==
[~2024-06-23] VITALS: Ht 172.7 cm; Wt 103.0 kg
[2024-06-23] VITALS (10 sets, daily range): BP systolic 89–151; BP diastolic 40–87
[~2024-06-23 13:13] MED LIST changes: +CORLANOR5 MG PO; +NITROSTAT0.4 MG SL; +VAZALORE81 MG PO
[2024-06-23] MEDS ORDERED: SODIUM CHLORIDE 0.9% 1,000 ML IV ONE (13:50)
[2024-06-23 14:30] LABS: BASO% 0.4 % (0-3); EOS% 3.3 % (0-8); HEMATOCRIT 37.7 % (37.0-47.0); IMMATURE GRANULOCYTES 0.2 % (0.0-5.0); LYMPH% 19.2 % (15-41); MEAN CELL VOLUME 71.7 fL CALC (80.0-100.0); MEAN CORPUSCULAR HGB 20.9 pG CALC (26.0-32.0); MEAN CORPUSCULAR HGB CONC 29.2 g/dL CAL (32.0-36.0); MONO% 5.6 % (2-13); NEUT# 7.03 thou/uL (2.00-7.15); NEUT% 71.3 % (42-76); RED BLOOD COUNT 5.26 mill/uL (4.20-5.60); RED CELL DISTRI WIDTH 20.6 % (11.5-15.5)
[2024-06-23 14:39] LABS: URINE BILIRUBIN - DIPSTICK Negative (NEGATIVE); URINE BLOOD DIPSTICK Negative (NEGATIVE); URINE GLUCOSE - DIPSTICK Negative (NEGATIVE); URINE KETONE Negative (NEGATIVE); URINE LEUK ESTERASE Negative (NEGATIVE); URINE NITRITE - DIPSTICK Negative (Negative); URINE PROTEIN - DIPSTICK Negative (NEG-TRACE); URINE SPECIFIC GRAVITY <=1.005; URINE UROBILINOGEN - DIPSTICK 0.2 E.U./dL (0.2)
[2024-06-23 14:44] LABS: URINE COLOR Yellow
[2024-06-23 14:48] LABS: ALBUMIN 4.2 g/dL (3.2-5.0); CREATININE 0.8 mg/dL (0.5-1.0); POTASSIUM 4.3 mmol/l (3.5-5.1); TOTAL PROTEIN 6.7 g/dL (6.3-8.2)
[2024-06-23 14:50] LABS: BILIRUBIN, TOTAL 0.3 mg/dL (0.02-1.3)
== END 2024-06-23 15:27 | disposition home or self-care (01) | DRG 639 ==
LOC: ED 13:13
PROVIDERS: Clinical Nurse Specialist Emergency; Family Medicine
DX: E11.65 Type 2 diabetes mellitus with hyperglycemia (principal); F41.9 Anxiety disorder, unspecified; J44.9 Chronic obstructive pulmonary disease, unspecified; K21.9 Gastro-esophageal reflux disease without esophagitis; F17.200 Nicotine dependence, unspecified, uncomplicated; Z20.822 Contact with and (suspected) exposure to COVID-19

== ENCOUNTER 2024-06-23 19:34 | Emergency (ER) | payer OTHER ==
[2024-06-23] VITALS (15 sets, daily range): BP systolic 108–132; BP diastolic 45–70
[~2024-06-23] VITALS: Ht 172.7 cm; Wt 69.0 kg
[2024-06-23] MEDS ORDERED: SODIUM CHLORIDE 0.9% 1,000 ML IV ONE ×2 (20:35→20:50)
[2024-06-23] MEDS ORDERED: METOCLOPRAMIDE HCL 10 MG/2 ML SDV IV ONE ×2 (20:35→20:50)
[2024-06-23] MEDS ORDERED: DiphenhydrAMINE HCL 50 MG/ML SDV IV ONE ×2 (20:35→20:50)
[2024-06-24 00:01] VITALS: BP 110/55
[2024-06-24 00:16] VITALS: BP 137/58
[2024-06-24 00:23] VITALS: BP 137/58
== END 2024-06-24 00:25 | disposition home or self-care (01) | DRG 103 ==
LOC: ED 19:34
DX: R51.9 Headache, unspecified (principal); F41.9 Anxiety disorder, unspecified; I10 Essential (primary) hypertension; J44.9 Chronic obstructive pulmonary disease, unspecified; K21.9 Gastro-esophageal reflux disease without esophagitis; F17.200 Nicotine dependence, unspecified, uncomplicated

== ENCOUNTER 2024-06-25 14:41 | Emergency (ER) | payer OTHER ==
[~2024-06-25] VITALS: Ht 172.7 cm; Wt 83.9 kg
[2024-06-25 15:01] VITALS: BP 109/57
[2024-06-25 15:16] VITALS: BP 109/45
[2024-06-25 15:30] VITALS: BP 118/56
[2024-06-25 15:38] VITALS: BP 118/56
== END 2024-06-25 16:00 | disposition home or self-care (01) | DRG 948 ==
LOC: ED 14:41
DX: R53.83 Other fatigue (principal); I10 Essential (primary) hypertension; J44.9 Chronic obstructive pulmonary disease, unspecified; F41.9 Anxiety disorder, unspecified; K21.9 Gastro-esophageal reflux disease without esophagitis; R73.03 Prediabetes; F17.200 Nicotine dependence, unspecified, uncomplicated; Z20.822 Contact with and (suspected) exposure to COVID-19

== ENCOUNTER 2024-06-26 20:14 | Emergency (ER) | payer OTHER ==
[2024-06-26 21:12] VITALS: BP 0/0
== END 2024-06-26 21:12 | disposition left against medical advice (07) | DRG 951 ==
LOC: ED 20:14 → LWOBS 21:12
DX: Z53.21 Procedure and treatment not carried out due to patient leaving prior to being seen by health care provider (principal)

== ENCOUNTER 2024-06-30 12:45 | Emergency (ER) | payer OTHER ==
[~2024-06-30] VITALS: Ht 172.7 cm; Wt 95.0 kg
[2024-06-30 14:49] LABS: BASO% 0.4 % (0-3); EOS% 3.9 % (0-8); HEMOGLOBIN 11.3 g/dl (12.0-16.0); IMMATURE GRANULOCYTES 0.1 % (0.0-5.0); LYMPH% 24.4 % (15-41); MEAN CELL VOLUME 74.2 fL CALC (80.0-100.0); MEAN CORPUSCULAR HGB CONC 28.3 g/dL CAL (32.0-36.0); MONO% 8.2 % (2-13); NEUT# 4.2 thou/uL (2.00-7.15); RED BLOOD COUNT 5.39 mill/uL (4.20-5.60); RED CELL DISTRI WIDTH 20.3 % (11.5-15.5)
[2024-06-30 15:07] LABS: ALBUMIN 3.9 g/dL (3.2-5.0); BILIRUBIN, TOTAL 0.4 mg/dL (0.02-1.3); CREATININE 0.7 mg/dL (0.5-1.0); POTASSIUM 4.3 mmol/l (3.5-5.1); TOTAL PROTEIN 6.3 g/dL (6.3-8.2)
[2024-06-30 15:30] VITALS: BP 158/78
== END 2024-06-30 15:37 | disposition home or self-care (01) | DRG 948 ==
LOC: ED 12:45
PROVIDERS: Nurse Practitioner
DX: R53.1 Weakness (principal)

== ENCOUNTER 2024-07-05 18:39 | Emergency (ER) | payer OTHER | END 2024-07-05 20:48 | disposition left against medical advice (07) | DRG 951 | LOC: ED 18:39 → LWOBS 20:48 | DX: Z53.21 Procedure and treatment not carried out due to patient leaving prior to being seen by health care provider (principal) ==

== ENCOUNTER 2024-07-06 17:39 | Emergency (ER) | payer OTHER ==
[~2024-07-06] VITALS: Ht 172.7 cm; Wt 100.0 kg
[2024-07-06 19:10] VITALS: BP 125/67
[2024-07-06 19:34] VITALS: BP 125/67
== END 2024-07-06 19:35 | disposition home or self-care (01) | DRG 153 ==
LOC: ED 17:39
DX: J02.9 Acute pharyngitis, unspecified (principal); I10 Essential (primary) hypertension; J44.9 Chronic obstructive pulmonary disease, unspecified; F41.9 Anxiety disorder, unspecified; K21.9 Gastro-esophageal reflux disease without esophagitis; F17.210 Nicotine dependence, cigarettes, uncomplicated; Z20.822 Contact with and (suspected) exposure to COVID-19

== ENCOUNTER 2024-07-19 12:01 | Emergency (ER) | payer OTHER | END 2024-07-19 12:45 | disposition left against medical advice (07) | DRG 951 | LOC: ED 12:01 → LWOBS 12:45 | DX: Z53.21 Procedure and treatment not carried out due to patient leaving prior to being seen by health care provider (principal) ==

== ENCOUNTER 2024-07-19 13:04 | Emergency (ER) | payer OTHER | END 2024-07-19 14:27 | disposition left against medical advice (07) | DRG 951 | LOC: ED 13:04 → LWOBS 13:51 | DX: Z53.21 Procedure and treatment not carried out due to patient leaving prior to being seen by health care provider (principal) ==

== ENCOUNTER 2024-07-20 20:53 | Emergency (ER) | payer OTHER | END 2024-07-20 21:31 | disposition left against medical advice (07) | DRG 951 | LOC: ED 20:53 → LWOBS 21:31 | DX: Z53.21 Procedure and treatment not carried out due to patient leaving prior to being seen by health care provider (principal) ==

== ENCOUNTER 2024-07-21 15:30 | Emergency (ER) | payer OTHER ==
[~2024-07-21] VITALS: Ht 172.7 cm; Wt 82.0 kg
[2024-07-21 15:57] VITALS: BP 135/75
== END 2024-07-21 16:02 | disposition left against medical advice (07) | DRG 951 ==
LOC: ED 15:30 → LWOBS 16:02 → ED 16:02
DX: Z53.21 Procedure and treatment not carried out due to patient leaving prior to being seen by health care provider (principal)

== ENCOUNTER 2024-07-21 17:59 | Emergency (ER) | payer OTHER ==
[~2024-07-21] VITALS: Ht 172.7 cm; Wt 81.6 kg
[2024-07-21 21:01] LABS: BASO% 0.4 % (0-3); EOS% 4.3 % (0-8); HEMATOCRIT 38.2 % (37.0-47.0); HEMOGLOBIN 11.2 g/dl (12.0-16.0); IMMATURE GRANULOCYTES 0.1 % (0.0-5.0); LYMPH% 23.1 % (15-41); MEAN CORPUSCULAR HGB 20.4 pG CALC (26.0-32.0); MEAN CORPUSCULAR HGB CONC 29.3 g/dL CAL (32.0-36.0); MONO% 7.6 % (2-13); NEUT# 5.96 thou/uL (2.00-7.15); NEUT% 64.5 % (42-76); RED BLOOD COUNT 5.49 mill/uL (4.20-5.60)
[2024-07-21 21:03] LABS: MEAN CELL VOLUME 69.6 fL CALC (80.0-100.0)
[2024-07-21 22:11] VITALS: BP 126/87
== END 2024-07-21 22:11 | disposition home or self-care (01) | DRG 880 ==
LOC: ED 17:59
PROVIDERS: Family Medicine
DX: F41.9 Anxiety disorder, unspecified (principal); R06.02 Shortness of breath

== ENCOUNTER 2024-07-29 09:11 | Emergency (ER) | payer OTHER ==
[2024-07-29] VITALS (8 sets, daily range): BP systolic 141–168; BP diastolic 64–96
[~2024-07-29] VITALS: Ht 172.7 cm; Wt 91.1 kg
[2024-07-29] MEDS ORDERED: CYCLOBENZAPRINE HCL 5 MG TAB PO ONE (10:15)
[2024-07-29] MEDS ORDERED: KETOROLAC TROMETHAMINE 30 MG/ML SDV IM ONE (10:15)
== END 2024-07-29 10:48 | disposition home or self-care (01) ==
LOC: ED 09:11
DX: M25.511 Pain in right shoulder (principal); I10 Essential (primary) hypertension; J44.9 Chronic obstructive pulmonary disease, unspecified; R73.03 Prediabetes; K21.9 Gastro-esophageal reflux disease without esophagitis; F17.200 Nicotine dependence, unspecified, uncomplicated
CPT/HCPCS: J1100

== ENCOUNTER 2024-07-29 21:57 | Emergency (ER) | payer OTHER | END 2024-07-29 22:17 | disposition left against medical advice (07) | DRG 951 | LOC: ED 21:57 → LWOBS 22:17 | DX: Z53.21 Procedure and treatment not carried out due to patient leaving prior to being seen by health care provider (principal) ==

== ENCOUNTER 2024-07-31 16:43 | Emergency (ER) | payer OTHER ==
[~2024-07-31] VITALS: Ht 170.2 cm; Wt 103.0 kg
[2024-07-31] MEDS ORDERED: ASPIRIN 81 MG/TAB PO ONE (17:10)
[2024-07-31 19:40] VITALS: BP 136/63
[2024-07-31] MEDS ORDERED: Acetaminophen 300 MG/Codeine 30 MG/COMBO PO ONE (19:45)
[2024-07-31] MEDS ORDERED: DICLOFENAC SODIUM 75 MG/TAB PO ONE (19:45)
[2024-07-31 20:01] VITALS: BP 124/64
[2024-07-31] MEDS ORDERED: VOLTAREN - GENE75 MG PO (20:23)
[2024-07-31] MEDS ORDERED: TRAMADOL HYDROC50 M1 PO (20:24)
== END 2024-07-31 20:41 | disposition home or self-care (01) | DRG 558 ==
LOC: ED 16:43
DX: M77.8 Other enthesopathies, not elsewhere classified (principal); I10 Essential (primary) hypertension; E11.9 Type 2 diabetes mellitus without complications; J44.9 Chronic obstructive pulmonary disease, unspecified; F41.9 Anxiety disorder, unspecified; K21.9 Gastro-esophageal reflux disease without esophagitis; F17.210 Nicotine dependence, cigarettes, uncomplicated

== ENCOUNTER 2024-09-27 17:29 | Emergency (ER) | payer OTHER ==
[~2024-09-27] VITALS: Ht 170.2 cm; Wt 95.0 kg
[~2024-09-27 17:29] MED LIST changes: +TRAMADOL HYDROC50 M1 PO; +VOLTAREN - GENE75 MG PO
[2024-09-27 17:55] VITALS: BP 127/66
[2024-09-27 18:06] VITALS: BP 126/59
[2024-09-27 18:19] LABS: BASO% 0.4 % (0-3); HEMATOCRIT 36.8 % (37.0-47.0); HEMOGLOBIN 11.1 g/dl (12.0-16.0); IMMATURE GRANULOCYTES 0.1 % (0.0-5.0); LYMPH% 24.1 % (15-41); MEAN CELL VOLUME 69.6 fL CALC (80.0-100.0); MEAN CORPUSCULAR HGB CONC 30.2 g/dL CAL (32.0-36.0); MONO% 8.6 % (2-13); NEUT# 5.34 thou/uL (2.00-7.15); NEUT% 62.8 % (42-76); RED BLOOD COUNT 5.29 mill/uL (4.20-5.60); RED CELL DISTRI WIDTH 19.1 % (11.5-15.5)
[2024-09-27 18:30] VITALS: BP 128/61
[2024-09-27 18:37] LABS: ALBUMIN 4.1 g/dL (3.2-5.0); BILIRUBIN, TOTAL 0.3 mg/dL (0.02-1.3); CREATININE 0.7 mg/dL (0.5-1.0); POTASSIUM 3.9 mmol/l (3.5-5.1); TOTAL PROTEIN 6.8 g/dL (6.3-8.2)
== END 2024-09-27 18:46 | disposition home or self-care (01) | DRG 305 ==
LOC: ED 17:29
PROVIDERS: Family Medicine
DX: I10 Essential (primary) hypertension (principal); E11.9 Type 2 diabetes mellitus without complications; J44.9 Chronic obstructive pulmonary disease, unspecified; F41.9 Anxiety disorder, unspecified; K21.9 Gastro-esophageal reflux disease without esophagitis; F17.200 Nicotine dependence, unspecified, uncomplicated